=== PATIENT | female | born 1945 | race Asian ===

== ENCOUNTER 2017-10-30 00:19 | Inpatient (IN) | payer OTHER ==
[~2017-10-30] VITALS: Ht 154.9 cm; Wt 56.0 kg
[2017-10-30] MEDS ORDERED: MIRTAZAPINE15 M2 PO (01:17)
[2017-10-30] MEDS ORDERED: DEXILANT60 M1 PO (01:17)
[2017-10-30] MEDS ORDERED: MICARDIS80 MG (01:17)
[2017-10-30] MEDS ORDERED: ASPIR 8181 MG PO (01:17)
[2017-10-30] MEDS ORDERED: XANAX XR1 M1 PO (01:17)
[2017-10-30] MEDS ORDERED: AMLODIPINE BESYL5 M2 PO (01:18)
[2017-10-30] MEDS ORDERED: METOPROLOL SUCC50 M2 PO (01:18)
[2017-10-30] MEDS ORDERED: OLANZAPINE20 M1 PO (01:18)
[2017-10-30 01:24] LABS: BASOPHIL % 0.3 % (0-2); PLATELET COUNT 333 x10^3mcL (130-400); RED CELL DISTRIBUTION WIDTH 12.1 % (11.5-14.5)
[2017-10-30 01:40] LABS: CARBON DIOXIDE 29.5 mmol/L (21-32); CHLORIDE SERUM 106 mmol/L (98-107); CREATININE SERUM 0.8 mg/dL (0.6-1.0); GLUCOSE SERUM 122 mg/dL (74-106); POTASSIUM SERUM 3.3 mmol/L (3.5-5.1); SODIUM SERUM 144 mmol/L (136-145)
[2017-10-30 01:45] LABS: ALBUMIN 3.5 g/dL (3.4-5.0); ALKALINE PHOSPHATASE 61 U/L (46-116); ALT/SGPT 28 U/L (14-59); AST/SGOT 23 U/L (15-37); BILIRUBIN TOTAL 0.25 mg/dL (0.20-1.00); FREE T4 1.17 ng/dL (0.76-1.46); LIPASE 124 IU/L (73-393); TOTAL PROTEIN, SERUM 6.9 g/dL (6.4-8.2)
[2017-10-30 02:32] LABS: microscopic required? NO
[2017-10-30 02:50] LABS: UA SPECIFIC GRAVITY 1.025 (1.005-1.035); urine erythrocyte NEGATIVE (NEGATIVE)
[2017-10-30 02:58] LABS: AMPHETAMINE QUAL UR NONE DETECTED (See below)
[2017-10-30 03:17] LABS: MAGNESIUM 2.1 mg/dL (1.8-2.4); PHOSPHOROUS 3.1 mg/dL (2.5-4.9)
[2017-10-30 03:29] VITALS: BP 119/66
[2017-10-30 03:32] VITALS: BP 125/63
[2017-10-30 03:49] LABS: CHOLESTEROL/HDL RATIO 2.6
[2017-10-30 05:23] LABS: PLATELET COUNT 292 x10^3mcL (130-400); RED CELL DISTRIBUTION WIDTH 12.8 % (11.5-14.5)
[2017-10-30 05:24] LABS: BASOPHIL % 0 % (0-2); CALCIUM 8.8 mg/dL (8.5-10.1); CARBON DIOXIDE 26.7 mmol/L (21-32); CHLORIDE SERUM 105 mmol/L (98-107); CREATININE SERUM 0.9 mg/dL (0.6-1.0); GLUCOSE SERUM 215 mg/dL (74-106); POTASSIUM SERUM 3.6 mmol/L (3.5-5.1); SODIUM SERUM 143 mmol/L (136-145)
[2017-10-30 05:28] LABS: RED BLOOD CELLS 3.48 M/mm3 (4.10-5.10); TOTAL IRON BINDING CAPACITY 253 ug/dL (250-450)
[2017-10-30 05:37] LABS: IRON 26 ug/dL (50-170)
[2017-10-30 07:15] VITALS: BP 133/69
[2017-10-30 11:18] VITALS: BP 129/70
[2017-10-30 17:27] VITALS: BP 139/74
[2017-10-30 20:21] VITALS: BP 141/68
[2017-10-31 05:36] LABS: CALCIUM 9.3 mg/dL (8.5-10.1); CARBON DIOXIDE 26.5 mmol/L (21-32); CHLORIDE SERUM 105 mmol/L (98-107); CREATININE SERUM 0.7 mg/dL (0.6-1.0); GLUCOSE SERUM 174 mg/dL (74-106); PLATELET COUNT 310 x10^3mcL (130-400); POTASSIUM SERUM 4.4 mmol/L (3.5-5.1); RED CELL DISTRIBUTION WIDTH 12.8 % (11.5-14.5); SODIUM SERUM 140 mmol/L (136-145)
[2017-10-31 05:39] VITALS: BP 122/68
[2017-10-31 07:42] LABS: BASOPHIL % 0 % (0-2)
[2017-10-31 08:40] VITALS: BP 131/64
[2017-10-31 13:30] VITALS: BP 128/70
[2017-10-31 17:18] VITALS: BP 123/63
[2017-10-31 20:11] VITALS: BP 146/75
[2017-10-31] MEDS ORDERED: CRESTOR5 M1 PO (22:56)
[2017-10-31] MEDS ORDERED: NAMZARIC1 ECC PO (22:56)
[2017-10-31] MEDS ORDERED: OLANZAPINE20 M1 PO (22:57)
[2017-10-31] MEDS ORDERED: MONTELUKAST SOD10 M1 PO (22:57)
[2017-10-31] MEDS ORDERED: TOVIAZ4 M1 PO (22:58)
[2017-11-01 05:03] VITALS: BP 115/58
[2017-11-01 09:05] VITALS: BP 128/67
[2017-11-01 10:50] LABS: BASOPHIL % 0.1 % (0-2); PLATELET COUNT 325 x10^3mcL (130-400); RED CELL DISTRIBUTION WIDTH 12.1 % (11.5-14.5)
[2017-11-01 11:31] LABS: ALKALINE PHOSPHATASE 51 U/L (46-116); ALT/SGPT 25 U/L (14-59); AST/SGOT 14 U/L (15-37); BILIRUBIN TOTAL 0.22 mg/dL (0.20-1.00); CALCIUM 8.6 mg/dL (8.5-10.1); CHLORIDE SERUM 100 mmol/L (98-107); CREATININE SERUM 0.9 mg/dL (0.6-1.0); GLUCOSE SERUM 357 mg/dL (74-106); POTASSIUM SERUM 4.2 mmol/L (3.5-5.1); SODIUM SERUM 136 mmol/L (136-145); TOTAL PROTEIN, SERUM 6.5 g/dL (6.4-8.2)
[2017-11-01 13:18] VITALS: BP 137/75
[2017-11-01 17:18] VITALS: BP 154/81
[2017-11-01 20:26] VITALS: BP 97/56
[2017-11-01 20:30] VITALS: BP 141/64
[2017-11-02] VITALS (7 sets, daily range): BP systolic 128–148; BP diastolic 63–70
[2017-11-02 09:35] LABS: BASOPHIL % 0.1 % (0-2); PLATELET COUNT 306 x10^3mcL (130-400); RED CELL DISTRIBUTION WIDTH 12.9 % (11.5-14.5)
[2017-11-02 12:45] LABS: CALCIUM 8.7 mg/dL (8.5-10.1); CARBON DIOXIDE 24.8 mmol/L (21-32); CHLORIDE SERUM 101 mmol/L (98-107); CREATININE SERUM 0.8 mg/dL (0.6-1.0); GLUCOSE SERUM 263 mg/dL (74-106); POTASSIUM SERUM 3.8 mmol/L (3.5-5.1); SODIUM SERUM 135 mmol/L (136-145)
[2017-11-03 05:35] VITALS: BP 134/70
[2017-11-03 06:55] LABS: CALCIUM 8.8 mg/dL (8.5-10.1); CARBON DIOXIDE 26.5 mmol/L (21-32); CHLORIDE SERUM 104 mmol/L (98-107); CREATININE SERUM 0.7 mg/dL (0.6-1.0); GLUCOSE SERUM 157 mg/dL (74-106); POTASSIUM SERUM 4.4 mmol/L (3.5-5.1); SODIUM SERUM 138 mmol/L (136-145)
[2017-11-03 07:00] LABS: PLATELET COUNT 295 x10^3mcL (130-400); RED CELL DISTRIBUTION WIDTH 12.9 % (11.5-14.5)
[2017-11-03 07:01] LABS: BASOPHIL % 0 % (0-2)
[2017-11-03 08:14] VITALS: BP 132/70
[2017-11-03 13:35] VITALS: BP 145/82
[2017-11-03] MEDS ORDERED: PREDNISONE20 MG PO (14:23)
[2017-11-03] MEDS ORDERED: PREDNISONE10 MG PO (14:24)
[2017-11-03] MEDS ORDERED: FLA500 PO (14:24)
[2017-11-03] MEDS ORDERED: LEVOFLOXACIN500 M1 PO (14:24)
[2017-11-03] MEDS ORDERED: CULTURELLE1 EACH PO (14:25)
[2017-11-03 14:54] VITALS: BP 145/82
[2017-11-03 15:22] VITALS: Ht 154.9 cm; Wt 56.0 kg
[2017-11-03 17:17] VITALS: BP 139/62
== END 2017-11-03 18:09 | disposition home health service (06) | DRG 177 ==
LOC: ED 00:19 → DU 02:04 → IC 02:04 → DU 16:57
PROVIDERS: Emergency Medicine; Internal Medicine
DX: J69.0 Pneumonitis due to inhalation of food and vomit (principal); J96.02 Acute respiratory failure with hypercapnia; G93.41 Metabolic encephalopathy; N17.0 Acute kidney failure with tubular necrosis; J45.901 Unspecified asthma with (acute) exacerbation; J44.1 Chronic obstructive pulmonary disease with (acute) exacerbation; D68.69 Other thrombophilia; F32.9 Major depressive disorder, single episode, unspecified; E11.65 Type 2 diabetes mellitus with hyperglycemia; E87.6 Hypokalemia; F03.90 Unspecified dementia, unspecified severity, without behavioral disturbance, psychotic disturbance, mood disturbance, and anxiety; D64.9 Anemia, unspecified; I10 Essential (primary) hypertension; Z68.26 Body mass index [BMI] 26.0-26.9, adult
CPT/HCPCS: 36600; 82962; 83880; 84439; 85378; 94150; 97110-GP; 97116-GP; 97530-GP; C9113; G0480; J1815; J1956; J2920; J2930; J3475; J3490; J7030; J7040; J7613; J7620; Q0092; Q9967